=== PATIENT | male | born 1985 | race Caucasian/White ===

== ENCOUNTER 2019-02-07 12:55 | Emergency (ER) | payer MEDICAID ==
[~2019-02-07] VITALS: Ht 180.3 cm; Wt 84.5 kg
[2019-02-07 13:10] VITALS: Ht 180.3 cm; Wt 84.5 kg
[2019-02-07 15:23] LABS: UA SPECIFIC GRAVITY 1.025 (1.005-1.035); microscopic required? YES; urine erythrocyte NEGATIVE (NEGATIVE)
[2019-02-07 16:35] VITALS: BP 125/80
== END 2019-02-07 17:57 | disposition home or self-care (01) ==
LOC: ED 12:55
PROVIDERS: Student in an Organized Health Care Education/Training Program
DX: R36.9 Urethral discharge, unspecified (principal); N48.89 Other specified disorders of penis
CPT/HCPCS: 87491; 87591; 99406; J0696